=== PATIENT | female | born 1990 | race American Indian/Alaskan Native ===

== ENCOUNTER 2019-06-13 20:37 | Emergency (ER) | payer MEDICAID ==
[~2019-06-13] VITALS: Ht 162.6 cm; Wt 92.1 kg
--- OUTSIDE RECORDS SUMMARY | 2019-06-13 20:40 | XMS ---
PreManage Notification: TAB DANG Security Roll Contour Grinder Events No recent Security Events currently on file CRITERIA MET - [facility] - 2 Visits in 30 Days CARE PROVIDERS ALBIN ELIAS [facility] Current PHONE: Unknown ALBIN ELIAS Primary Care Current PHONE: [phone] Corrie Mendiola Primary Care 03/15/2017-Current PHONE: [phone] Karan Hurley Primary Care Current [facility] PHONE: Unknown [facility] Primary Care Current [place] PHONE: Unknown LEGACY GOOD Primary Care Current [facility] PHONE: Unknown ERIN BELLAMY Primary Care 12/14/2012-Current PHONE: [phone] EDEN TUBBS Primary Care 06/30/2012-Current PHONE: [phone] NANCY JIMENEZ 02/16/2012-Current PHONE: [phone] Shruthi has no Care Guidelines for this patient. Tammi VISIT COUNT (12 MO.) 2 [facility] 1 RON[facility] Manuel TOTAL 3 NOTE: Visits indicate total known visits. ED/UCC VISIT TRACKING (12 MO.) 06/13/2019 20:38 [facility] [place] TYPE: Emergency COMPLAINT: - WEAKNESS 06/10/2019 17:21 [facility] [place] TYPE: Urgent Care DIAGNOSES: - Medication Reaction - Other fatigue 05/28/2019 15:01 [facility] [place] TYPE: Emergency DIAGNOSES: - Insomnia, unspecified - Generalized Body Aches - Overall Pain/[place] - Vomiting, unspecified 05/19/2019 13:24 [facility] [place] TYPE: Emergency DIAGNOSES: - Hemorrhage of anus and rectum - Blood in stool - Fever (9 Weeks To 74 Years) - Periapical abscess without sinus 05/18/2019 09:33 [facility] [place] TYPE: Urgent Care DIAGNOSES: - Muscle Pain - Alveolitis of jaws - Diarrhea 04/20/2019 17:07 [facility] [place] [facility] TYPE: Urgent Care DIAGNOSES: - Periapical abscess without sinus - Ear Fullness INPATIENT VISIT TRACKING (12 MO.) No inpatient visits to display in this time frame [email or web address]
[2019-06-13] MEDS ORDERED: CELEXA20 MG PO (20:46)
[2019-06-13] MEDS ORDERED: HYDROXYZINE HCL50 MG PO (20:47)
--- NOTE | 2019-06-14 11:27 | EKG ---
[facility] [address] [place] [address] Signed Normal sinus rhythm with sinus arrhythmia T wave inversion in V1 and V2. No previous ECGs available Confirmed by ROSSANA BAUMAN MD ([id number]) on 06/14/2019 11:27:02 AM Electronically Signed By: ROSSANA BAUMAN MD 06/14/19 1127 PATIENT NAME: TAB DANG Electrocardiogram DATE OF : 89 PHYSICIAN: ROSSANA BAUMAN MD REPORT #: [id number] REPORT IS CONFIDENTIAL AND NOT TO BE RELEASED WITHOUT AUTHORIZATION
== END 2019-06-13 22:13 | disposition home or self-care (01) ==
LOC: ED 20:37
DX: E87.6 Hypokalemia (principal); F17.200 Nicotine dependence, unspecified, uncomplicated; F31.9 Bipolar disorder, unspecified; F41.9 Anxiety disorder, unspecified; Z88.5 Allergy status to narcotic agent; Z79.899 Other long term (current) drug therapy
CPT/HCPCS: 80053; 81001; 83735; 84484; 84703; 85025; 93005; 93010; 96360; 99285-25; J7030

== ENCOUNTER 2021-10-19 22:48 | Emergency (ER) | payer OTHER ==
[~2021-10-19] VITALS: Ht 162.6 cm; Wt 102.9 kg
[~2021-10-19 22:48] MED LIST: CELEXA20 MG PO; HYDROXYZINE HCL50 MG PO
--- OUTSIDE RECORDS SUMMARY | 2021-10-19 22:54 | XMS ---
PreManage Notification: TAB DANG Security Consumer Insights Specialist Events No recent Security Events currently on file CRITERIA MET - [facility] - 2 Visits in 30 Days CARE PROVIDERS TRA SAUCEDO [facility] Current PHONE: Unknown Tommy Kumar Nurse Practitioner: Family Current PHONE: [phone] KATELYNN JAMES Work Counselor/Offset Plate Preparation Supervisor Current PHONE: [phone] ALBIN ELIAS [facility] Current PHONE: Unknown Shruthi has no Care Guidelines for this patient. Tammi VISIT COUNT (12 MO.) 1 [facility] [place] 1 RONDA Manuel TOTAL 2 NOTE: Visits indicate total known visits. ED/UCC VISIT TRACKING (12 MO.) 10/19/2021 22:48 [facility] [place] TYPE: Emergency COMPLAINT: - MEDICAL CLEARANCE 10/15/2021 [facility]11 [facility]: [facility] DIAGNOSES: - Schizoaffective disorder, bipolar type - Ingestion (Adult - Accidental) - Urinary tract infection, site not specified - poisoned with bleach found in food INPATIENT VISIT TRACKING (12 MO.) No inpatient visits to display in this time frame [email or web address]
== END 2021-10-20 01:32 | disposition home or self-care (01) ==
LOC: ED 22:48
DX: F25.9 Schizoaffective disorder, unspecified (principal); G40.909 Epilepsy, unspecified, not intractable, without status epilepticus; F31.9 Bipolar disorder, unspecified; F17.200 Nicotine dependence, unspecified, uncomplicated; Z88.5 Allergy status to narcotic agent
CPT/HCPCS: 99283

== ENCOUNTER 2021-10-26 19:41 | Emergency (ER) | payer OTHER ==
[~2021-10-26] VITALS: Ht 162.6 cm; Wt 104.3 kg
--- OUTSIDE RECORDS SUMMARY | 2021-10-26 19:48 | XMS ---
PreManage Notification: TAB DANG Security Packaging Line Attendant Events No recent Security Events currently on file CRITERIA MET - [facility] - 2 Visits in 30 Days CARE PROVIDERS TRA SAUCEDO [facility] Current PHONE: Unknown Tommy Kumar Nurse Practitioner: Family Current PHONE: [phone] KATELYNN JAMES Head Of Biology/Home Service Demonstrator Current PHONE: [phone] ALBIN ELIAS [facility] Current PHONE: Unknown Shruthi has no Care Guidelines for this patient. Tammi VISIT COUNT (12 MO.) 2 [facility] 2 [facility]ON[facility] Manuel TOTAL 4 NOTE: Visits indicate total known visits. ED/UCC VISIT TRACKING (12 MO.) 10/26/2021 19:41 [facility] [place] TYPE: Emergency COMPLAINT: - MEDICAL CLEARANCE [facility] DIAGNOSES: - Fatigue - Altered Mental Status - Schizoaffective disorder, bipolar type 10/19/2021 22:48 RONDA Garcia TYPE: Emergency COMPLAINT: - MEDICAL CLEARANCE DIAGNOSES: - Nicotine dependence, unspecified, uncomplicated - Schizoaffective disorder, unspecified - Epilepsy, unspecified, not intractable, without status epilepticus - Encounter for other administrative examinations - Allergy status to narcotic agent - Bipolar disorder, unspecified 10[facility]15[facility]2021 [facility] DIAGNOSES: - Schizoaffective disorder, bipolar type - Ingestion (Adult - Accidental) - Urinary tract infection, site not specified - poisoned with bleach found in food INPATIENT VISIT TRACKING (12 MO.) No inpatient visits to display in this time frame [email or web address]
--- NOTE | 2021-10-27 13:32 | EKG ---
[facility] [address] [place], [place] [address] Signed Sinus tachycardia Otherwise normal ECG When compared with ECG of 13-JUN-2019 20:54, No significant change was found Confirmed by JERI MUELLER DO ([id number]) on 10/27/2021 1:32:35 PM Electronically Signed By: JERI MUELLER DO 10/27/21 1332 PATIENT NAME: TAB DANG Electrocardiogram DATE OF : 89 PHYSICIAN: JERI MUELLER DO REPORT #: [id number] REPORT IS CONFIDENTIAL AND NOT TO BE RELEASED WITHOUT AUTHORIZATION
== END 2021-10-29 11:08 ==
LOC: ED 19:41
DX: F23 Brief psychotic disorder (principal); E87.6 Hypokalemia; M62.82 Rhabdomyolysis; G40.909 Epilepsy, unspecified, not intractable, without status epilepticus; F17.200 Nicotine dependence, unspecified, uncomplicated; Z88.5 Allergy status to narcotic agent; Z88.6 Allergy status to analgesic agent; Z20.822 Contact with and (suspected) exposure to COVID-19
CPT/HCPCS: 80048; 80053; 81001; 82553; 83735; 84132; 84443; 84703; 85025; 93005; 93010; 96374; 99285-25; C9803; G0480; J1630; J7121; U0003

== ENCOUNTER 2022-10-15 15:18 | Emergency (ER) | payer OTHER ==
[~2022-10-15] VITALS: Ht 162.6 cm; Wt 119.7 kg
[2022-10-15] MEDS ORDERED: DIVALPROEX SOD500 M1 PO (15:36)
[2022-10-15] MEDS ORDERED: INVEGA SUS234 MG/1.5 IM (15:37)
[2022-10-15] MEDS ORDERED: ARIPIPRAZOLE10 MG PO (15:37)
[2022-10-15] MEDS ORDERED: HALOPERIDOL5 MG PO (15:37)
[2022-10-16] MEDS ORDERED: OMEPRAZOLE20 MG PO (00:35)
== END 2022-10-16 00:48 | disposition home or self-care (01) ==
LOC: ED 15:18
DX: K29.70 Gastritis, unspecified, without bleeding (principal); F17.200 Nicotine dependence, unspecified, uncomplicated; Z88.8 Allergy status to other drugs, medicaments and biological substances; Z88.5 Allergy status to narcotic agent; Z79.899 Other long term (current) drug therapy
CPT/HCPCS: 36415; 74177; 76705; 80053; 81001; 83690; 83735; 84703; 85025; 87502; 96361; 96375; 99284-25; J2405; J3010; J7030; J7040; Q9967; U0003

== ENCOUNTER 2023-05-31 17:18 | Emergency (ER) | payer OTHER ==
[~2023-05-31] VITALS: Ht 162.6 cm; Wt 119.3 kg
--- OUTSIDE RECORDS SUMMARY | ~2023-05-31 | XMS | Continuity of Care Document ---
Demographics + + + | Address | [address] | | | [place] [address] | + + + | Preferred Language | Unknown | + + + | Marital Status | Never | + + + | Spiritism Affiliation | Unknown | + + + | Race | Unknown | + + + | Ethnic Group | or | + + + Author + + + | Author | [facility] | + + + | Organization | [facility] | + + + | Address | [address] | | | [place] [address] | + + + | Phone | | + + + Care Team Providers + + + + | Care Grade School Teacher Name | Role | Phone | + + + + Unavailable | Unavailable | + + + + Unavailable | Unavailable | + + + + Allergies and Intolerances + + + + + + | date | description | facility | reaction | severity | + + + + + + | (no date) | Urticaria | [facility] | (no reaction) | (no severity) | [facility] | | | + + + + + + | (no date) | Acetaminophen | [facility] | (no reaction) | (no severity) | | [facility] | | | + + + + + + | (no date) | Hydrocodone | [facility] | (no reaction) | (no severity) | | [facility] | | | + + + + + + | (no date) | Mild | [facility] | (no reaction) | (no severity) | | | [facility] | | | + + + + + + | (no date) | Acetaminophen | [facility] | (no reaction) | (no severity) | | | [facility] | | | + + + + + + | (no date) | Acetaminophen | [facility] | (no reaction) | (no severity) | | [facility] | | | + + + + + + | (no date) | Itching | [facility] | (no reaction) | (no severity) | | [facility] | | | + + + + + + | (no date) | Hydrocodone | [facility] | (no reaction) | (no severity) | | [facility] | | | + + + + + + | (no date) | Hydrocodone | [facility] | (no reaction) | (no severity) | | | [facility] | | | + + + + + + Encounters No information. Functional Status No information. Immunizations No information. Medications + + + + | date | description | facility | + + + + | 2022-10-23 00:00 | DIVALPROEX SODIUM | [facility] | + + + + | 2022-10-16 00:00 | OMEPRAZOLE | [facility] | + + + + | 2022-10-23 00:00 | CITALOPRAM HYDROBROMIDE | [facility] | + + + + | 2022-10-23 00:00 | HALOPERIDOL | [facility] | + + + + | 2022-10-23 00:00 | ARIPIPRAZOLE | [facility] | + + + + | 2022-10-23 00:00 | PALIPERIDONE PALMITATE | [facility] | + + + + | 2022-10-23 00:00 | HYDROXYZINE HCL | [facility] | + + + + Problems + + + + | date | description | facility | + + + + | 2019-06-13 00:00 | Hypokalemia | [facility] | + + + + | 2021-10-20 00:00 | Schizoaffective disorder | [facility] | + + + + | 2021-10-20 00:00 | Encounter for medical | [facility] | | | screening examination | | + + + + | 2021-10-27 00:00 | Acute psychosis | [facility] | + + + + | 2021-10-27 00:00 | Rhabdomyolysis | [facility] | + + + + | 2022-10-16 00:00 | Gastritis | [facility] | + + + + | 2022-10-16 00:00 | Abdominal pain | [facility] | + + + + Procedures No information. Results/Labs +--------+--------+ +---------+--------+---------+ | test | date | facility | value | unit | notes | +--------+--------+ +---------+--------+---------+ + + | Result panel 1 | + + + + + +-------+---------+ + | | 2022-10-15 | [facility] | 125 | mg/dL | (missing) | | (unavailable | 13:50:08 [facility] | | | | + + + +-------+---------+ + + + | Result panel 2 | + + + + + +-----+---------+ + | | 2022-10-15 | [facility] | 3 | mg/dL | (missing) | | (unavailable | 13:50:08 [facility] | | | | + + + +-----+---------+ + + + | Result panel 3 | + + + + + +--------+---------+ + | | 2022-10-15 | [facility] | 0.63 | mg/dL | (missing) | | (unavailable | 13:50:08 [facility] | | | | + + + +--------+---------+ + + + | Result panel 4 | + + + + + +-------+ + + | | 2022-10-15 | [facility] | 122 | (missing) | (missing) | | (unavailable | 13:50:08 [facility] | | | | + + + +-------+ + + + + | Result panel 5 | + + + + + +--------+ + + | | 2022-10-15 | [facility] | 4.76 | (missing) | (missing) | | (unavailable | 13:50:08 [facility] | | | | + + + +--------+ + + + + | Result panel 6 | + + + + + +-------+ + + | | 2022-10-15 | [facility] | 139 | (missing) | (missing) | | (unavailable | 13:50:08 [facility] | | | | + + + +-------+ + + + + | Result panel 7 | + + + + + +-------+ + + | | 2022-10-15 | [facility] | 3.5 | (missing) | (missing) | | (unavailable | 13:50:08 [facility] | | | | + + + +-------+ + + + + | Result panel 8 | + + + + + +-------+ + + | | 2022-10-15 | [facility] | 101 | (missing) | (missing) | | (unavailable | 13:50:08 [facility] | | | | + + + +-------+ + + + + | Result panel 9 | + + + + + +------+ + + | | 2022-10-15 | [facility] | 30 | (missing) | (missing) | | (unavailable | 13:50:08 [facility] | | | | + + + +------+ + + + + | Result panel 10 | + + + + + +--------+ + + | | 2022-10-15 | [facility] | 11.5 | (missing) | (missing) | | (unavailable | 13:50:08 [facility] | | | | + + + +--------+ + + + + | Result panel 11 | + + + + + +-------+---------+ + | | 2022-10-15 | [facility] | 9.1 | mg/dL | (missing) | | (unavailable | 13:50:08 [facility] | | | | + + + +-------+---------+ + + + | Result panel 12 | + + + + + +-------+---------+ + | | 2022-10-15 | [facility] | 1.8 | mg/dL | (missing) | | (unavailable | 13:50:08 [facility] | | | | + + + +-------+---------+ + + + | Result panel 13 | + + + + + +-------+ + + | | 2022-10-15 | [facility] | 8.3 | (missing) | (missing) | | (unavailable | 13:50:08 [facility] | | | | + + + +-------+ + + + + | Result panel 14 | + + + + + +-------+ + + | | 2022-10-15 | [facility] | 3.4 | (missing) | (missing) | | (unavailable | 13:50:08 [facility] | | | | + + + +-------+ + + + + | Result panel 15 | + + + + + +-------+ + + | | 2022-10-15 | [facility] | 4.9 | (missing) | (missing) | | (unavailable | 13:50:08 [facility] | | | | + + + +-------+ + + + + | Result panel 16 | + + + + + +--------+ + + | | 2022-10-15 | [facility] | 0.69 | (missing) | (missing) | | (unavailable | 13:50:08 [facility] | | | | + + + +--------+ + + + + | Result panel 17 | + + + + + +-------+ + + | | 2022-10-15 | [facility] | 0.2 | (missing) | (missing) | | (unavailable | 13:50:08 [facility] | | | | + + + +-------+ + + + + | Result panel 18 | + + + + + +------+ + + | | 2022-10-15 | [facility] | 39 | (missing) | (missing) | | (unavailable | 13:50:08 [facility] | | | | + + + +------+ + + + + | Result panel 19 | + + + + + +------+ + + | | 2022-10-15 | [facility] | 67 | (missing) | (missing) | | (unavailable | 13:50:08 [facility] | | | | + + + +------+ + + + + | Result panel 20 | + + + + + +-------+ + + | | 2022-10-15 | [facility] | 141 | (missing) | (missing) | | (unavailable | 13:50:08 [facility] | | | | + + + +-------+ + + + + | Result panel 21 | + + + + + +-------+ + + | | 2022-10-15 | [facility] | 124 | (missing) | (missing) | | (unavailable | 15:30:08 | [facility] | | | | + + + +-------+ + + + + | Result panel 22 | + + + + + +------+ + + | | 2022-10-15 | [facility] | 56 | (missing) | (missing) | | (unavailable | 17:30:08 | [facility] | | | | + + + +------+ + + + + | Result panel 23 | + + + + + +------+ + + | | 2022-10-15 | [facility] | 40 | (missing) | (missing) | | (unavailable | 17:30:08 [facility] | | | | + + + +------+ + + + + | Result panel 24 | + + + + + +-----+ + + | | 2022-10-15 | [facility] | 2 | (missing) | (missing) | | (unavailable | 17:30:08 [facility] | | | | + + + +-----+ + + + + | Result panel 25 | + + + + + +-----+ + + | | 2022-10-15 | [facility] | 2 | (missing) | (missing) | | (unavailable | 17:30:08 [facility] | | | | + + + +-----+ + + + + | Result panel 26 | + + + + + + + + + | | 2022-10-15 | [facility] | PRESENT | (missing) | (missing) | | (unavailable | 17:30:08 [facility] | | | | + + + + + + + + + | Result panel 27 | + + + + + + + + + | | 2022-10-15 | [facility] | SEE | (missing) | (missing) | | (unavailable | 17:30:08 | [facility] COMMENTS | | | | [facility] | | [facility] | | | | + + + + + + + + + | Result panel 28 | + + + + + + + + + | | 2022-10-15 | [facility] | YELLOW | (missing) | (missing) | | (unavailable | 17:30:08 | [facility] | | | | + + + + + + + + + | Result panel 29 | + + + + + +---------+ + + | | 2022-10-15 | [facility] | CLEAR | (missing) | (missing) | | (unavailable | 17:30:08 | [facility] | | | | + + + +---------+ + + + + | Result panel 30 | + + + + + + + + + | | 2022-10-15 | [facility] | NEGATIVE | (missing) | (missing) | | (unavailable | 17:30:08 [facility] | | | | + + + + + + + + + | Result panel 31 | + + + + + + + + + | | 2022-10-15 | [facility] | NEGATIVE | (missing) | (missing) | | (unavailable | 17:30:08 [facility] | | | | + + + + + + + + + | Result panel 32 | + + + + + + + + + | | 2022-10-15 | [facility] | NEGATIVE | (missing) | (missing) | | (unavailable | 17:30:08 | [facility] | | | | + + + + + + + + + | Result panel 33 | + + + + + +---------+ + + | | 2022-10-15 | [facility] | 1.015 | (missing) | (missing) | | (unavailable | 17:30:08 [facility] | | | | + + + +---------+ + + + + | Result panel 34 | + + + + + +---------+ + + | | 2022-10-15 | [facility] | SMALL | (missing) | (missing) | | (unavailable | 17:30:08 [facility] | | | | + + + +---------+ + + + + | Result panel 35 | + + + + + +-------+ + + | | 2022-10-15 | [facility] | 7.0 | (missing) | (missing) | | (unavailable | 17:30:08 [facility] | | | | + + + +-------+ + + + + | Result panel 36 | + + + + + + + + + | | 2022-10-15 | [facility] | NEGATIVE | (missing) | (missing) | | (unavailable | 17:30:08 [facility] | | | | + + + + + + + + + | Result panel 37 | + + + + + + + + + | | 2022-10-15 | [facility] | NORMAL | (missing) | (missing) | | (unavailable | 17:30:08 | [facility] | | | | + + + + + + + + + | Result panel 38 | + + + + + + + + + | | 2022-10-15 | [facility] | NEGATIVE | (missing) | (missing) | | (unavailable | 17:30:08 | [facility] | | | | + + + + + + + + + | Result panel 39 | + + + + + + + + + | | 2022-10-15 | [facility] | NEGATIVE | (missing) | (missing) | | (unavailable | 17:30:08 | [facility] | | | | + + + + + + + + + | Result panel 40 | + + + + + +-------+ + + | | 2022-10-15 | [facility] | 2-3 | (missing) | (missing) | | (unavailable | 17:30:08 [facility] | | | | + + + +-------+ + + + + | Result panel 41 | + + + + + +-------+ + + | | 2022-10-15 | [facility] | 0-1 | (missing) | (missing) | | (unavailable | 17:30:08 [facility] | | | | + + + +-------+ + + + + | Result panel 42 | + + + + + + + + + | | 2022-10-15 | [facility] | SQUAMOUS 1+ | (missing) | (missing) | | (unavailable | 17:30:08 | [facility] | | | | + + + + + + + + + | Result panel 43 | + + + + + +------+ + + | | 2022-10-15 | [facility] | No | (missing) | (missing) | | (unavailable | 17:30:08 [facility] | | | | + + + +------+ + + + + | Result panel 44 | + + + + + + + + + | | 2022-10-15 | [facility] | CLEAN CATCH | (missing) | (missing) | | (unavailable | 17:30:08 | [facility] | | | | + + + + + + + + + | Result panel 45 | + + + + + + + + + | | 2022-10-15 | [facility] | NEGATIVE | (missing) | (missing) | | (unavailable | 19:42:08 | [facility] | | | | + + + + + + + + + | Result panel 46 | + + + + + + + + + | | 2022-10-15 | [facility] | NEGATIVE | (missing) | (missing) | | (unavailable | 19:50:08 | [facility] | | | | + + + + + + + + + | Result panel 47 | + + + + + + + + + | | 2022-10-15 | [facility] | NEGATIVE | (missing) | (missing) | | (unavailable | 19:50:08 | [facility] | | | | + + + + + + + + + | Result panel 48 | + + + + + + + + + | | 2022-10-15 | [facility] | NEGATIVE | (missing) | (missing) | | (unavailable | 19:50:08 [facility] | | | | + + + + + + + + + | Result panel 49 | + + + + + + + + + | | 2022-10-15 | [facility] | NEGATIVE | (missing) | (missing) | | (unavailable | 19:50:08 [facility] | | | | + + + + + + + + + | Result panel 50 | + + + + + +--------+ + + | | 2022-10-15 | [facility] | 17.5 | (missing) | (missing) | | (unavailable | 23:45:08 [facility] | | | | + + + +--------+ + + + + | Result panel 51 | + + + + + +--------+ + + | | 2022-10-15 | [facility] | 63.9 | (missing) | (missing) | | (unavailable | 23:45:08 [facility] | | | | + + + +--------+ + + + + | Result panel 52 | + + + + + +--------+ + + | | 2022-10-15 | [facility] | 28.9 | (missing) | (missing) | | (unavailable | 23:45:08 [facility] | | | | + + + +--------+ + + + + | Result panel 53 | + + + + + +-------+ + + | | 2022-10-15 | [facility] | 5.0 | (missing) | (missing) | | (unavailable | 23:45:08 [facility] | | | | + + + +-------+ + + + + | Result panel 54 | + + + + + +-------+ + + | | 2022-10-15 | [facility] | 1.2 | (missing) | (missing) | | (unavailable | 23:45:08 [facility] | | | | + + + +-------+ + + + + | Result panel 55 | + + + + + +-------+ + + | | 2022-10-15 | [facility] | 1.0 | (missing) | (missing) | | (unavailable | 23:45:08 [facility] | | | | + + + +-------+ + + + + | Result panel 56 | + + + + + +--------+ + + | | 2022-10-15 | [facility] | 4.67 | (missing) | (missing) | | (unavailable | 23:45:08 [facility] | | | | + + + +--------+ + + + + | Result panel 57 | + + + + + +--------+ + + | | 2022-10-15 | [facility] | 12.9 | (missing) | (missing) | | (unavailable | 23:45:08 [facility] | | | | + + + +--------+ + + + + | Result panel 58 | + + + + + +--------+ + + | | 2022-10-15 | [facility] | 40.6 | (missing) | (missing) | | (unavailable | 23:45:08 [facility] | | | | + + + +--------+ + + + + | Result panel 59 | + + + + + +--------+ + + | | 2022-10-15 | [facility] | 86.8 | (missing) | (missing) | | (unavailable | 23:45:08 [facility] | | | | + + + +--------+ + + + + | Result panel 60 | + + + + + +--------+ + + | | 2022-10-15 | [facility] | 27.6 | (missing) | (missing) | | (unavailable | 23:45:08 [facility] | | | | + + + +--------+ + + + + | Result panel 61 | + + + + + +--------+ + + | | 2022-10-15 | [facility] | 31.8 | (missing) | (missing) | | (unavailable | 23:45:08 [facility] | | | | + + + +--------+ + + + + | Result panel 62 | + + + + + +--------+ + + | | 2022-10-15 | [facility] | 15.5 | (missing) | (missing) | | (unavailable | 23:45:08 [facility] | | | | + + + +--------+ + + + + | Result panel 63 | + + + + + +-------+ + + | | 2022-10-15 | [facility] | 539 | (missing) | (missing) | | (unavailable | 23:45:08 [facility] | | | | + + + +-------+ + + Social History No information. Vital Signs + + + +---------+ | date | measurement | value | units | + + + +---------+ | 2022-10-15 00:00 | BMI | 45.3 | kg/m2 | + + + +---------+ | 2022-10-15 00:00 | height_metric | 162.56 | cm | + + + +---------+ | 2022-10-15 00:00 | height_standard | 64 | in | + + + +---------+ | 2022-10-15 00:00 | weight_metric | 119.66 | kg | + + + +---------+ | 2022-10-15 00:00 | weight_standard | 263.81 | lb | + + + +---------+ | 2022-10-16 00:00 | BP_diastolic | 79 | mmHg | + + + +---------+ | 2022-10-16 00:00 | BP_systolic | 114 | mmHg | + + + +---------+ | 2022-10-16 00:00 | heart_rate | 104 | /min | + + + +---------+ | 2022-10-16 00:00 | o2_saturation | 95 | % | + + + +---------+ | 2022-10-16 00:00 | respiration_rate | 15 | /min | + + + +---------+ | 2022-10-16 00:00 | temperature_metric | 36.83 | C | | | | | | + + + +---------+ | 2022-10-16 00:00 | | 98.3 | F | | | temperature_standar | | | | | d | | | + + + +---------+"
--- OUTSIDE RECORDS SUMMARY | ~2023-05-31 | XMS | Continuity of Care Document ---
Demographics + + + | Address | [address] | | | [place] [address] | + + + | Preferred Language | Unknown | + + + | Marital Status | Never | + + + | Mu-Ism Affiliation | Unknown | + + + | Race | Unknown | + + + | Ethnic Group | or | + + + Author + + + | Author | [facility] | + + + | Organization | [facility] | + + + | Address | [address] [facility] | | | [place] [address] | + + + | Phone | | + + + Care Team Providers + + + + | Care Sales Clerk Supervisor Name | Role | Phone | + [...] | (no severity) | | | | [facility] | | | | | | [facility] [...] + | (no date) | Hydrocodone | [facility] | (no reaction) | (no severity) | | | | [facility] | | [facility] | | | + + + + + + Encounters No information. Functional Status No information. Immunizations No information. Medications + + + + | date | description | facility | + + + + | 2022-10-23 00:00 | DIVALPROEX SODIUM | [facility] | + + + + | 2022-10-16 00:00 | OMEPRAZOLE | [facility] | + + + + | 2022-10-23 00:00 | CITALOPRAM HYDROBROMIDE | [facility] | + + + + | 2022-10-23 00:00 | HALOPERIDOL | [facility] | + + + + | 2022-10-23 00:00 | ARIPIPRAZOLE | [facility] | + + + + | 2022-10-23 00:00 | PALIPERIDONE PALMITATE | [facility] | + + + + | 2022-10-23 00:00 | HYDROXYZINE HCL | [facility] | + + + + Problems + + + + | date | description | facility | + + + + | 2019-06-13 00:00 | Hypokalemia | [facility] | + + + + | 2021-10-20 00:00 | Schizoaffective disorder | [facility] | + + + + | 2021-10-20 00:00 | Encounter for medical | [facility] | | | screening examination | | + + + + | 2021-10-27 00:00 | Acute psychosis | [facility] | + + + + | 2021-10-27 00:00 | Rhabdomyolysis | [facility] | + + + + | 2022-10-16 00:00 | Gastritis | [facility] | + + + + | 2022-10-16 00:00 | Abdominal pain | [facility] | + + + + [...]
[~2023-05-31 17:18] MED LIST changes: +ARIPIPRAZOLE10 MG PO; +DIVALPROEX SOD500 M1 PO; +HALOPERIDOL5 MG PO; +INVEGA SUS234 MG/1.5 IM; +OMEPRAZOLE20 MG PO
[2023-05-31] MEDS ORDERED: SERTRALINE HCL50 MG PO (19:39)
[2023-05-31] MEDS ORDERED: HYDROXYZINE HCL25 MG PO (19:39)
[2023-05-31] MEDS ORDERED: DEPAKOTE ER500 MG PO (19:40)
[2023-05-31] MEDS ORDERED: QUETIAPINE FUM100 MG PO (19:40)
[2023-05-31] MEDS ORDERED: ABILIFY10 MG PO (19:41)
[2023-05-31 20:12] LABS: BASOPHILS 0.9 % (0-2); EOSINOPHILS 0.7 % (0-6); HEMATOCRIT 39.6 % (35.0-50.0); HEMOGLOBIN 13.1 g/dL (12.0-18.0); LYMPHOCYTES 35.2 % (24-44); MCHC 33.1 g/dl (30-36); MCV 84.5 fl (81-99); MONOCYTES 5.2 % (0-12); PLATELET COUNT 489 K/uL (140-440); RBC 4.69 M/ul (4.3-5.7); RDW 14.4 (10.5-15.0)
[2023-05-31 20:28] LABS: BILIRUBIN, URINE NEGATIVE (negative); BLOOD/HGB, URINE SMALL (Negative); KETONE, URINE NEGATIVE (Negative); LEUK ESTERASE, URINE NEGATIVE (negative); NITRITE, URINE NEGATIVE (negative)
[2023-05-31 20:29] LABS: ALBUMIN 3.3 g/dL (3.4-5.0); ALBUMIN/GLOBULIN RATIO 0.73 (1.1-2.4); ANION GAP 13.6 (7-21); BILIRUBIN, TOTAL 0.1 ng/dL (0.2-1.0); BUN/CREATININE RATIO 6.84 (6.0-28.6); CALCIUM 8.8 mg/dL (8.5-10.1); CREATININE, SERUM 0.73 mg/dL (0.55-1.02); POTASSIUM 3.6 mmol/L (3.5-5.1); PROTEIN, TOTAL 7.8 g/dL (6.4-8.2)
[2023-05-31 20:38] LABS: BACTERIA, URINE RARE /hpf (negative); CASTS, URINE NONE SEEN \\lpf; COLLECTION TYPE, URINE CLEAN CATCH; CRYSTALS, URINE NONE SEEN (0-1+); RED BLOOD CELLS, URINE 0-1 /hpf (0-5); REFLEX CULTURE, URINE No (No); WHITE BLOOD CELLS, URINE 0-1 /HPF (0-5)
[2023-05-31 20:39] LABS: EPITHELIAL CELLS, URINE SQUAMOUS 2+ /lpf (0-1+)
[2023-05-31 20:52] LABS: INFLUENZA B NAA NEGATIVE (NEGATIVE); RESPIRATORY SYNCYTIAL VIR NAA NEGATIVE (NEGATIVE)
[2023-05-31 21:27] VITALS: BP 113/77
== END 2023-05-31 21:27 | disposition home or self-care (01) ==
LOC: ED 17:18
PROVIDERS: Internal Medicine
DX: A08.4 Viral intestinal infection, unspecified (principal); F31.9 Bipolar disorder, unspecified; G40.909 Epilepsy, unspecified, not intractable, without status epilepticus; F17.200 Nicotine dependence, unspecified, uncomplicated; Z79.899 Other long term (current) drug therapy; Z88.8 Allergy status to other drugs, medicaments and biological substances; Z88.6 Allergy status to analgesic agent; Z88.5 Allergy status to narcotic agent; Z20.822 Contact with and (suspected) exposure to COVID-19
CPT/HCPCS: 36415; 71045; 80053; 81001; 84703; 85025; 87502; 96361; 96374; 99284-25; A9270; C9803; J2405; J7121; U0002

== ENCOUNTER 2023-06-13 15:57 | Emergency (ER) | payer OTHER ==
[~2023-06-13] VITALS: Ht 162.6 cm; Wt 112.8 kg
[~2023-06-13 15:57] MED LIST changes: +ABILIFY10 MG PO; +DEPAKOTE ER500 MG PO; +HYDROXYZINE HCL25 MG PO; +QUETIAPINE FUM100 MG PO; +SERTRALINE HCL50 MG PO
--- OUTSIDE RECORDS SUMMARY | 2023-06-13 16:04 | XMS ---
PreManage Notification: TAB DANG Security Director Of Cardiology Service Line Events No recent Security Events currently on file CRITERIA MET - [facility] - 2 Visits in 30 Days CARE PROVIDERS -, Basim- Dentist: Trial Court Judge [facility] PHONE: [phone] -, Kami- Dentist: Trial Court Judge [facility] PHONE: [phone] DAREK HU Physician Lofter Current PHONE: [phone] KATELYNN JAMES [employer] Para Professional[employer] Current PHONE: [phone] Shruthi has no Care Guidelines for this patient. Tammi VISIT COUNT (12 MO.) 3 RONDA Manuel TOTAL 3 NOTE: Visits indicate total known visits. ED/UCC VISIT TRACKING (12 MO.) 06/13/2023 15:57 [facility] [place] TYPE: Emergency COMPLAINT: - BLOOD IN URINE 05/31/2023 17:19 [facility] [place] TYPE: Emergency COMPLAINT: - FLU SYMPTOMS DIAGNOSES: - Allergy status to analgesic agent - Allergy status to narcotic agent - Allergy status to other drugs, medicaments and biological substances - Bipolar disorder, unspecified - Contact with and (suspected) exposure to COVID-19 - Epilepsy, unspecified, not intractable, without status epilepticus - Nausea with vomiting, unspecified - Nicotine dependence, unspecified, uncomplicated - Other joint terminal attack controller (current) drug therapy - Viral intestinal infection, unspecified 10/15/2022 15:19 [facility] [place] TYPE: Emergency COMPLAINT: - N/V/D, DIZZY, DEHYDRATED DIAGNOSES: - Allergy status to narcotic agent - Allergy status to other drugs, medicaments and biological substances - Contact with and (suspected) exposure to COVID-19 - Gastritis, unspecified, without bleeding - Nausea with vomiting, unspecified - Nicotine dependence, unspecified, uncomplicated - Other prison (current) drug therapy INPATIENT VISIT TRACKING (12 MO.) No inpatient visits to display in this time frame [email or web address]
[2023-06-13 16:40] LABS: HEMATOCRIT 40.3 % (35.0-50.0); HEMOGLOBIN 13.2 g/dL (12.0-18.0); MCH 27.7 (27-36); MCHC 32.7 g/dl (30-36); MCV 84.7 fl (81-99); PLATELET COUNT 465 K/uL (140-440); RBC 4.76 M/ul (4.3-5.7); RDW 14.4 (10.5-15.0)
[2023-06-13 16:49] LABS: BILIRUBIN, URINE NEGATIVE (negative); BLOOD/HGB, URINE SMALL (Negative); KETONE, URINE NEGATIVE (Negative); LEUK ESTERASE, URINE NEGATIVE (negative); NITRITE, URINE NEGATIVE (negative)
[2023-06-13 16:55] LABS: ALBUMIN 3.5 g/dL (3.4-5.0); ALBUMIN/GLOBULIN RATIO 0.8 (1.1-2.4); ANION GAP 14.5 (7-21); BILIRUBIN, TOTAL 0.2 ng/dL (0.2-1.0); CALCIUM 8.6 mg/dL (8.5-10.1); CREATININE, SERUM 0.9 mg/dL (0.55-1.02); POTASSIUM 3.5 mmol/L (3.5-5.1); PROTEIN, TOTAL 7.9 g/dL (6.4-8.2)
[2023-06-13 16:57] LABS: BACTERIA, URINE NONE SEEN /hpf (negative); CASTS, URINE NONE SEEN \\lpf; COLLECTION TYPE, URINE CLEAN CATCH; CRYSTALS, URINE NONE SEEN (0-1+); EPITHELIAL CELLS, URINE SQUAMOUS 1+ /lpf (0-1+); REFLEX CULTURE, URINE No (No)
[2023-06-13 17:01] LABS: BANDS, MANUAL DIFF 1; EOSINOPHILS, MANUAL DIFF 1; LYMPHOCYTES, MANUAL DIFF 34; MONOCYTES, MANUAL DIFF 4; NEUTROPHILS, MANUAL DIFF 60
[2023-06-13] MEDS ORDERED: PYRIDIUM200 MG PO (17:56)
[2023-06-13 18:31] VITALS: BP 131/88
== END 2023-06-13 18:32 | disposition home or self-care (01) ==
LOC: ED 15:57
PROVIDERS: Emergency Medicine
DX: R31.9 Hematuria, unspecified (principal); Z88.5 Allergy status to narcotic agent; Z88.8 Allergy status to other drugs, medicaments and biological substances; Z79.899 Other long term (current) drug therapy; F17.200 Nicotine dependence, unspecified, uncomplicated
CPT/HCPCS: 36415; 74176; 80053; 81001; 84703; 85025; 96374; 96375; 99284-25; 99406; J1885; J2405

== ENCOUNTER 2024-12-02 10:45 | Day surgery (SDC) | payer OTHER ==
[2024-12-01 08:21] VITALS: BP 145/96
[~2024-12-02] VITALS: Ht 162.6 cm; Wt 125.9 kg
[~2024-12-02 10:45] MED LIST changes: -HYDROXYZINE HCL25 MG PO; +HYDROXYZINE PA100 MG PO; +IBLOOD GLUCOSE TEST STRIP 1 EA TEST VI PRN; +LACTATED RINGER'S 1,000 ML IV SCH; +LIDOCAINE HCL 1% 5 ML SDV INJ ONE; +MIDAZOLAM HCL 5 MG/5 ML VIAL IV PRN; +PYRIDIUM200 MG PO; -QUETIAPINE FUM100 MG PO; +SEROQUEL XR200 MG PO; +fentaNYL citrate 100 MCG/2 ML VIAL IV PRN
[2024-12-02 10:59] VITALS: BP 129/75
[2024-12-02 11:27] LABS: HEMATOCRIT 40.1 % (35.0-50.0); HEMOGLOBIN 13.5 g/dL (12.0-18.0); MCH 27.2 (27-36); MCHC 33.7 g/dl (30-36); MCV 80.6 fl (81-99); PLATELET COUNT 482 K/uL (140-440); RBC 4.98 M/ul (4.3-5.7)
[2024-12-02 11:43] LABS: ALBUMIN 3.7 g/dL (3.4-5.0); ALBUMIN/GLOBULIN RATIO 0.84 (1.1-2.4); ANION GAP 12.8 (7-21); BILIRUBIN, TOTAL 0.3 mg/dL (0.2-1.0); BUN/CREATININE RATIO 10.44 (6.0-28.6); CALCIUM 9.3 mg/dL (8.5-10.1); CREATININE, SERUM 0.67 mg/dL (0.55-1.02); POTASSIUM 3.8 mmol/L (3.5-5.1); PROTEIN, TOTAL 8.1 g/dL (6.4-8.2)
[2024-12-02] MEDS ORDERED: LIDOCAINE HCL 2% 5 ML SDV ONE (11:49)
[2024-12-02] MEDS ORDERED: propofoL 200 MG/20 ML VIAL ONE (11:49)
[2024-12-02 11:52] LABS: LYMPHOCYTES, MANUAL DIFF 45; MONOCYTES, MANUAL DIFF 1; NEUTROPHILS, MANUAL DIFF 52; OTHER, MANUAL DIFF 2
[2024-12-02 11:53] LABS: BASOPHILS, MANUAL DIFF 0; EOSINOPHILS, MANUAL DIFF 0
[2024-12-02 11:59] LABS: BANDS, ABSOLUTE 0; BASOPHILS, ABSOLUTE 0 %; EOSINOPHILS, ABSOLUTE 0; MONOCYTES, ABSOLUTE 0.2; NEUTROPHILS, ABSOLUTE 8.1; OTHER, ABSOLUTE 0.3
[2024-12-02 16:04] VITALS: BP 133/92
--- NOTE | 2024-12-02 16:13 | NUR ---
12/02/24 1613 Concha Chery 1211- PT PRESENTS TO PACU IN THE PRONE POSITION, BREATHING RAPID BUT EVEN AND NON LABORED. O2 AT 6L PER MASK, LR INFUSING TO RH IV. PT NON REACTIVE TO STIMULUS. BANDAID TO LEFT UPPER BUTTOCK. ALL MONITORS IN PLACE. 1213- PT WAKES SELF, MOVED TO ROOM AIR. PT CHOOSES TO STAY ON ABD, REORIENTED TO TIME AND PLACE, PT FALLS BACK TO SLEEP, WILL CONTINUE TO MONITOR. 1224- PT WAKES AGAIN, REORIENTED TO TIME AND PLACE. PT SHOCKED THAT PROCEDURE COMPLETED, ROLLED TO BACK ON OWN. WATER PROVIDED, TOLERATING WELL. 1235- PT VERY AWAKE AND REPORTS READY TO GO HOME. PT UP TO SIDE OF BED, NO DIZZINESS OR NAUSEA. SALINE LOCK REMOVED, TIP INTACT, DRESSING APPLIED. PT VERBALIZED UNDERSTANDING OF INSTRUCTIONS. RIDE CALLED. 1240- PT TRANSFERRED TO WHEELCHAIR WITH STEADY GAIT, ALERT AND ORIENTED. PT TAKEN OUT TO FRIENDS CAR, NO SIGNS OF DISTRESS. ALL BELONGINGS WITH PT.
[2024-12-03 10:25] LABS: BETA-2-MICROGLOBULIN,SER/PLAS 1.7 mg/L (0.8-2.4)
[2024-12-03 12:55] LABS: IMMUNOGLOBULIN A 331 mg/dL (68-408); IMMUNOGLOBULIN G 980 mg/dL (768-1632); IMMUNOGLOBULIN M 84 mg/dL (35-263)
--- NOTE | 2024-12-06 20:48 | PATH ---
[facility] [address] [place], [place] [address] Signed SPECIMEN(S): A BONE MARROW - CORE SPECIMEN(S): B BONE MARROW - ASPIRATION SPECIMEN(S): C FLOW CYTOMETRY, BM EDTA ASP CLINICAL HISTORY: 34 years female with chronic lymphocytosis chronic lymphocytic leukemia, unconfirmed DIAGNOSIS SUMMARY: Peripheral blood - Mild lymphocytosis, absolute lymphocyte count 7,100/ul. - No circulating blasts or dyspoiesis identified. Bone marrow biopsy and aspiration: - Normocellular marrow, 60%, with less than 1% blasts - Trilineage hematopoiesis with no significant dyspoiesis. - No atypical lymphoid aggregates or lymphoid malignancy identified. - Decreased marrow iron stores by Prussian Blue stain. - See diagnostic comment. DIAGNOSTIC COMMENT: The history of chronic lymphocytosis is noted. No clonal lymphoid population is detected by flow cytometry. No atypical lymphoid aggregates are noted in the biopsy section. Possible studies to further evaluate the lymphocytosis would include evaluation for potential adenopathy or organomegaly and consideration of B and T-cell gene rearrangement studies from peripheral blood. Possible reactive etiologies for the lymphocytosis would include viral infection, other infections, stress, drug reactions, autoimmune disorders, nutritional deficiencies and hormonal changes. HISTORICAL SUMMARY: 34 yo female with no prior hematology case history in the [employer] database, presents for evaluation of an unexplained chronic lymphocytosis. PERIPHERAL BLOOD: HEMOGRAM (12/02/2024): WBC 15.6 K/ul, RBC 4.98 M/ul, HGB 13.5 g/dl, HCT 40.1%, MCV 80.6 fl, MCH 27.2 pg, MCHC 33.7 g/dl, RDW 15.0%, PLT 482 K/ul, MPV 6.3 fl. Absolute lymphocyte count 7,100/ul AUTOMATED DIFFERENTIAL COUNT: Neutrophils 47.5%, lymphocytes 45.4%, monocytes 5.6%, eosinophils 0.9%, basophils 0.6%. The red blood cells are normocytic and normochromic with minimal PATIENT NAME: TAB NAVARRO PATHOLOGY DATE OF : [birth year] REPORT #: [id number] PHYSICIAN: TESS PATHOLOGY PCP: GREG GALEAS PA-C REPORT IS CONFIDENTIAL AND NOT TO BE RELEASED WITHOUT AUTHORIZATION [facility] [address] [place], [place] [address] Signed aniso-poikilocytosis. The neutrophils are unremarkable. Lymphocytes are composed of both small mature appearing forms and intermediate forms with increased cytoplasm with no hairy cell projections and a round nucleus. Platelets appear relatively normal in number and morphology with no platelet clumping or RBC microangiopathic effect identified. No blasts are identified. BONE MARROW: ASPIRATE SMEARS/TOUCH IMPRINT: The aspirate smears are adequate for evaluation. Scattered erythroid precursors show adequate maturation with essentially normal morphology. The myeloid precursors show full maturation with unremarkable morphology. There is no increase in blasts. Megakaryocytes are identified with a normal morphology. BONE MARROW DIFFERENTIAL COUNT (300 cells): Blasts less than 1%. promyelocytes less than 1%, myelocytes 4%, metamyelocytes/bands/segs 41%, erythroid precursors 25%, lymphocytes 24%, monocytes 3%, eosinophils less than 1%, plasma cells less than 1%. M:E ratio: 1.9:1 BONE MARROW CORE BIOPSY/ASPIRATE CLOT/CELL BLOCK: The aspirate clot section is mostly blood with rare small marrow spicules and is sub-optimal for evaluation. The core biopsy is short in length (6 mm with one third of this cartilage) and is sub-optimal for evaluation. The core biopsy demonstrates unremarkable trabecular bone. The cellularity is normal for age, estimated at 60%. The erythroid precursors are within normal limits with essentially unremarkable maturation. The myeloid precursors are unremarkable with no significant dyspoiesis. Blasts are not increased. Megakaryocytes appear normal in number and in morphology. No granulomas, atypical lymphoid aggregates or foreign malignant cells are detected. SPECIAL STAINS (with adequate controls): - iron (aspirate smear):Negative for marrow iron in a limited specimen (one small spicule). No ring sideroblasts identified. - iron (cell block): Focal positive marking for iron by Prussian Blue stain. IMMUNOHISTOCHEMISTRY STAINS (performed on block A1 with adequate controls). - PAX5: 5% with no atypical aggregates. - CD3: 8% with no atypical aggregates. - FLOW CYTOMETRY: Bone marrow aspiration, flow cytometry: - No diagnostic abnormal populations are identified by flow cytometry. - See comment. PATIENT NAME: TAB NAVARRO PATHOLOGY DATE OF : [birth year] REPORT #: [id number] PHYSICIAN: TESS PATHOLOGY PCP: GREG GALEAS PA-C REPORT IS CONFIDENTIAL AND NOT TO BE RELEASED WITHOUT AUTHORIZATION [facility] [address] [place], [place] [address] Signed COMMENT: While no diagnostic hematopoietic abnormality is detected in this study, correlation with clinical, morphologic, and genetic findings is recommended for full interpretation and to assess for disease processes not fully examined by flow cytometry analysis, including myelodysplastic syndrome or myeloproliferative neoplasm. FLOW CYTOMETRY ANALYSIS: FLOW DIFFERENTIAL (% Total CD45 vs. SSC gating): Myeloid 70%; Lymphoid 16%; Monocyte 3%; Dim CD45/Blast: 0.6%. Cell Count: 8.8 x 10*3/uL. POPULATION ANALYSIS: BLASTS: Analysis of the dim CD45 gate demonstrates 0.6% myeloblasts by CD34/CD117 and 2.3% hematogones. LYMPHOID CELLS: The lymphocyte gate comprises 16% of total events and includes 57% T-cells with a CD4:CD8 ratio of 2.4:1 and normal watson T-cell antigen expression. 29% of lymphocytes are polyclonal B-cells with a kappa:lambda ratio of 1.5:1. The remainders are NK-cells. MYELOID CELLS: The myeloid population comprises 70% of the total events. No aberrant immunophenotypic expression is detected. MONOCYTES: The monocyte population comprises 3% of the total events. Monocytes are not increased. No aberrant immunophenotypic expression is detected. PLASMA CELLS: 0.1% plasma cells are detected in the screening gate neg-dimCD45/CD38. Plasma cells are CD45 dim and positive for CD19. ANTIBODIES USED: KAPPA, LAMBDA, CD20, CD10, CD19, CD23, CD38, CD16, CD56, CD8, CD5, CD2, CD4, CD7, CD3, CD14, CD33, CD13, HLADR, CD34, CD117, CD15, CD45: TOTAL ANTIBODIES USED: 23. SHR FINAL DIAGNOSIS PERFORMED BY: Solo Medeiros MD, Dec 04 2024 7:41AM GROSS DESCRIPTION: Two specimens are received in two containers A. The specimen, labeled and designated "Navarro, bone marrow core biopsy," is received in formalin and consists of one kee cylindrical core of bone that is 0.7 cm long and 0.2 cm in diameter. After decalcification in Immunocal the specimen is entirely submitted in (A1). B. The specimen, labeled and designated "Navarro, bone marrow clot," is received in formalin and consists of a 1.5 x 1.2 x 0.7 cm aggregate of red brown clot material. Entirely submitted in (B1). JS (under the direct supervision of a pathologist) The Gross Description was prepared using a voice recognition system. The report PATIENT NAME: TAB NAVARRO PATHOLOGY DATE OF : [birth year] REPORT #: [id number] PHYSICIAN: TESS MONROY PCP: GREG GALEAS PA-C REPORT IS CONFIDENTIAL AND NOT TO BE RELEASED WITHOUT AUTHORIZATION [facility] [address] [place] [id number] Signed was reviewed for accuracy; however, sound-alike word errors, addition and/or deletions may occur. If there is any question about this report, please contact Client Services. ADDITIONAL NOTES: Immunohistochemical and/or in situ hybridization studies if performed in this case included appropriate positive controls that reacted as expected. This test was developed and its performance characteristics determined by [facility]. It has not been cleared or approved by the U.S. Food and Drug Administration. The FDA has determined that such clearance or approval is not necessary. This test is used for clinical purposes. It should not be regarded as investigational or for research. [facility] is certified under the Clinical Laboratory Improvement Amendments of 1988 (CLIA) as qualified to perform high complexity clinical laboratory testing. In this case, certain antibodies were performed by both immunohistochemistry and flow cytometry analysis because flow cytometry analysis did not fully explain all the light microscopic findings. Immunohistochemistry aided in the analysis. Both methods are deemed medically necessary in this case. This test was developed and its performance characteristics determined by [facility]. It has not been cleared or approved by the US Food and Drug Administration. The FDA does not require this test to go through premarket FDA review. This test is used for clinical purposes. It should not be regarded as investigational or for research. This laboratory is certified under the Clinical Laboratory Improvement Amendments (CLIA) as qualified to perform high complexity clinical laboratory testing. PERFORMING LABORATORY: The technical preparation was performed by [facility], [facility] [place] [address] (CLIA#: [id number]). Professional interpretation [facility] [address] [address] (CLIA#: [id number]). Technical component was performed by [facility], [address] [place] [id number] (CLIA# [id number]). Professional interpretation was performed by [facility], [address] [place] [id number] (CLIA#: [id number]). PATIENT NAME: TAB NAVARRO PATHOLOGY DATE OF : [birth year] REPORT #: [id number] PHYSICIAN: TESS MONROY PCP: GREG GALEAS PA-C REPORT IS CONFIDENTIAL AND NOT TO BE RELEASED WITHOUT AUTHORIZATION [address] [address] Signed IMAGES: [id number]: [id number] A: [id number] Diagnostician: Solo Medeiros MD Pathologist Electronically Signed 12/06/2024 Copies: ~ PATIENT NAME: TAB NAVARRO PATHOLOGY DATE OF : [birth year] REPORT #: [id number] PHYSICIAN: TESS PATHOLOGY PCP: GREG GALEAS PA-C REPORT IS CONFIDENTIAL AND NOT TO BE RELEASED WITHOUT AUTHORIZATION
== END 2024-12-02 12:40 | disposition home or self-care (01) ==
LOC: DS 10:45
PROVIDERS: ATTEND Specialist
PROC: 079T3ZX Drainage of Bone Marrow, Percutaneous Approach, Diagnostic (ICD-10-PCS; 2024-12-02)
PROC: 07DR0ZX Extraction of Iliac Bone Marrow, Open Approach, Diagnostic (ICD-10-PCS; principal; 2024-12-02 12:00)
DX: D72.820 Lymphocytosis (symptomatic) (principal); F31.9 Bipolar disorder, unspecified; I10 Essential (primary) hypertension; K21.9 Gastro-esophageal reflux disease without esophagitis; E66.01 Morbid (severe) obesity due to excess calories; Z68.42 Body mass index [BMI] 45.0-49.9, adult; Z87.891 Personal history of nicotine dependence; Z79.899 Other long term (current) drug therapy; Z88.5 Allergy status to narcotic agent; Z88.8 Allergy status to other drugs, medicaments and biological substances
CPT/HCPCS: 01112; 36415; 80053; 82232; 83615; 84703; 85007; 85025; J2003; J2704; J7121